=== PATIENT | male | born 1990 | race Caucasian/White ===

== ENCOUNTER 2018-03-13 19:10 | Emergency (ER) | payer OTHER, MEDICAID ==
[~2018-03-13] VITALS: Ht 182.9 cm; Wt 95.3 kg
[~2018-03-13 19:10] MED LIST: ADDERALL 20 MG20 M1 PO; COLCHICINE0.6 MG PO; IBUPROFEN 600600 M1 PO; PRILOSEC 20 MG20 MG PO; PROZAC10 MG PO; SEROPHENE50 MG PO; VALIUM5 MG PO
[2018-03-13] MEDS ORDERED: KEFLEX500 M1 PO (19:54)
[2018-03-13] MEDS ORDERED: BACTRIM DS TAB1 EACH PO (19:54)
[2018-03-13 20:08] VITALS: BP 139/60
== END 2018-03-13 20:09 | disposition home or self-care (01) ==
LOC: M.ERS 19:10
DX: L02.211 Cutaneous abscess of abdominal wall (principal); L03.311 Cellulitis of abdominal wall; F41.9 Anxiety disorder, unspecified

== ENCOUNTER 2021-03-23 19:08 | Emergency (ER) | payer OTHER ==
[~2021-03-23] VITALS: Ht 180.3 cm; Wt 86.2 kg
[~2021-03-23 19:08] MED LIST changes: +BACTRIM DS TAB1 EACH PO; +KEFLEX500 M1 PO
[2021-03-23] MEDS ORDERED: MEDROLDOSEPACK PO (21:37)
[2021-03-23 21:46] VITALS: BP 141/70
--- NOTE | 2021-03-24 12:00 | EKG ---
[place] [address] ELECTROCARDIOGRAM REPORT Name: GO FARAH Room: [facility]#: [id number] Admission: 03/23/21 Attend Phys: Discharge: 03/23/21 Date of : 89 Date of Service: 03/23/212016 Report #: [id number] THIS REPORT FOR: //name// [facility] ED Test Date: 2021-03-23 Test Time: 20:17:14 Pat Name: GO FARAH Department: Room: Gender: [employer] Control Assistant: BOJORQUEZ : 1990 Requested By: Alecia Nunez Order Number: [id number] MD: Gal Swann Measurements Intervals [place] Rate: 71 P: 74 [place]: 123 QRS: 80 QRSD: 79 T: 67 QT: 361 QTc: 393 Interpretive Statements Sinus rhythm Compared to ECG 08/04/2016 02:11:49 Sinus tachycardia no longer present ST (T wave) deviation no longer present Electronically Signed On 03-24-2021 12:00:36 CDT by Gal Swann [email or web address] <ELECTRONICALLY SIGNED> By: Gal Swann MD, FACC 03/24/21 1200 16 16 Gal Swann MD, FAC /EPI
== END 2021-03-23 21:47 | disposition home or self-care (01) ==
LOC: M.ERS 19:08
DX: M79.662 Pain in left lower leg (principal); F41.9 Anxiety disorder, unspecified; Z79.899 Other long term (current) drug therapy

== ENCOUNTER 2021-04-15 23:26 | Emergency (ER) | payer OTHER ==
[~2021-04-15] VITALS: Ht 180.3 cm; Wt 86.2 kg
[~2021-04-15 23:26] MED LIST changes: +MEDROLDOSEPACK PO
[2021-04-16 00:59] VITALS: BP 148/95
== END 2021-04-16 01:00 | disposition home or self-care (01) ==
LOC: M.ERS 23:26
DX: R06.00 Dyspnea, unspecified (principal); R06.01 Orthopnea; Z20.822 Contact with and (suspected) exposure to COVID-19

== ENCOUNTER 2021-07-02 22:58 | Emergency (ER) | payer OTHER | END 2021-07-02 23:04 | disposition left against medical advice (07) | LOC: M.ERS 22:58 | DX: R07.89 Other chest pain (principal); Z53.21 Procedure and treatment not carried out due to patient leaving prior to being seen by health care provider ==